=== PATIENT | male | born 1945 | race Caucasian/White ===

== ENCOUNTER 2017-03-04 05:52 | Inpatient (IN) | payer MEDICARE ==
[~2017-03-04] VITALS: Ht 185.4 cm; Wt 88.3 kg
--- NOTE | ~2017-03-04 | CATH ---
Cardiac Diagnostic + PCI Report Demographics Patient Name ARLENE TO Gender Male Date of 1945 Age 72 year(s) Patient Number [id number] Date of Study 03/04/2017 Visit Number [id number] Room Number G6330 [place] [id number] Ht 185.42 cm Wt 88 kg Referring [facility] Primary Physician Physician Maddy DAVENPORT Performing [facility] Secondary Physician Physician Maddy DAVENPORT Diagnostic [facility] Assisting Physician Physician Maddy DAVENPORT Interventional [facility] Physician Jig Bore Operator Physician Maddy DAVENPORT Findings and Conclusions Diagnostic Findings and Conclusion 2 vessel CAD: Mid LAD 100% total occlusion with collaterals from RCA and prox/mid RCA 70% tandem lesions with aneurysmal segment between the 2 lesions. Diagnostic Recommendations PCI LAD given ongoing chest pressure 3/10 and significant cardiac biomarker elevation this is likely the culprit lesion for ACS. Interventional Findings and Conclusion Status post PCI of LAD with SHARDA 3.25/33 Xience stent deployed at 12 sonny x 2 times for 20 seconds, distal to the stent severe spasm was noted in mid LAD that improved significantly with IC Nitro. Interventional Recommendations DAPT x1 year Medical management. Patient will be observed overnight. Continue current medications. Hydration and followup creatinine. Patient has been instructed to not lift anything more than 5 pounds for 1 week. I will plan on seeing the patient back in 2 week(s). Aggressive risk factor management. Aggressive medical therapy for coronary artery disease. ASA. Statin. Bulmaro Inhibitor. Beta Carmine. Smoking Cessation. Dual Anti-platelet therapy. Smoking Cessation teaching and counseling done . Cardiac diet . Optimization of medical therapy as an outpatient. Referral to Cardiac Rehabilitation now and at discharge . Will also add nitrates given severe spasm in mid to distal LAD that responds well to ntg. If patient has angina recommend PCI of RCA in future. Procedure Description The patient was brought to the diagnostic cardiac catheterization-EP laboratory in the fasting, non-sedated state. Informed consent was obtained in the written and verbal form after the risks and benefits were explained. The patient had no further questions and agreed to proceed. The planned puncture-incision site(s) were shaved and prepped with ChloraPrep and draped in the usual sterile manner. Conscious sedation, supplemental oxygen, and pain control medications were delivered by a registered nurse under physician guidance. Surface ECG rhythm, blood pressure measurement, and pulse oximetry were monitored throughout the procedure. Arterial access. The access site was infiltrated with lidocaine. The vessel was entered with the Seldinger technique. A sheath was advanced into the vessel and used for catheter placement. Selective left coronary angiography. A catheter was advanced into the left coronary vessel ostium under Fluoroscopic guidance. Contrast was injected by hand. Images were obtained in multiple projections. Selective right coronary angiography. A catheter was advanced into the right coronary vessel ostium under fluoroscopic guidance. Contrast was injected by hand. Images were obtained in multiple projections. Left heart catheterization. A catheter was advanced across the aortic valve to the left ventricle under fluoroscopic guidance. Resting hemodynamics were obtained. Angioplasty and Stent Placement: A guiding catheter was used to intubate the vessel. A 0.14 wire was then used to cross the lesion. A balloon catheter was placed across the lesion and inflated. The balloon catheter was then removed. A Drug Eluting Stent was placed and inflated. Post placement angiograms were performed. Arterial artery hemostasis was achieved. The patient was transferred to a regular nursing floor via cart accompanied by a nurse. The patient left the laboratory in stable condition. Diagnostic Cath Status: Urgent Interventional Cath Status: Urgent Procedure Procedure Type Diagnostic procedure:Angiography:, Coronary Angios /[facility] PCI procedure:Drug Eluting Coronary Stent:, LAD Indications: NSTEMI and Acute coronary syndrome. The procedure was explained in detail to the patient. Risks, complications and alternative treatments were reviewed. Written consent was obtained. Medications Reviewed with Patient prior to Procedure. Angiographic Findings Dominance: Right Cardiac Arteries and Lesion Findings LMCA: Lesion on LMCA: 10% stenosis . LAD: Diag normal Lesion on Mid LAD: Proximal subsection.100% stenosis reduced to 0%. Pre procedure DIANE 0 flow was noted. Post Procedure DIANE III flow was present. The guidewire cross was successful.The lesion was diagnosed as a high risk lesion.Culprit lesion. Devices used - Fielder FC 180 cm. Number of passes: 1. - Emerge Balloon 2.0 x 8. 2 inflation(s) to a max pressure of: 8 sonny. - Emerge Balloon 2.5 x 20. 4 inflation(s) to a max pressure of: 12 sonny. - Emerge Balloon 3.0 x 20. 1 inflation(s) to a max pressure of: 6 sonny. - Alpine Stent 3.25 x 33. 2 inflation(s) to a max pressure of: 12 sonny. Lesion on Prox LAD: Proximal subsection.70% stenosis . LCx: Normal (0% Stenosis).CIrc and OM normal RCA: RCA proximal and mid lesions aneurysmal. PL and PDA normal Lesion on Prox RCA: Proximal subsection.70% stenosis . Lesion on Mid RCA: Mid subsection.70% stenosis . Ramus: Lesion on Ramus: Mid subsection.10% stenosis . Coronary Tree Procedure Data Procedure Date Date: 03/04/2017Start: 10:27 AMEnd: 11:52 AM Entry Locations - Retrograde Percutaneous access was performed through the Right Radial artery (Primary location). A 6 Fr sheath was inserted. Hemostasis was successfully obtained using an R band. Closure Comments: R) band applied to site 19 ml of air in band.. Procedure Medications Order and Administration + + + + + !Time !Medication !Dosage !Route ! + + + + + !03/04/2017 10:24 !Fentanyl !25 mcg !I.V. ! !AM ! ! ! ! + + + + + !03/04/2017 10:25 !Versed !1 mg !I.V. ! !AM ! ! ! ! + + + + + !03/04/2017 10:41 !Angiomax (Bivalirudin) !67.5 mg !I.V. bolus ! !AM !(ACC_5) ! ! ! + + + + + !03/04/2017 10:42 !Angiomax (Bivalirudin) !1.75 mg/kg/hr!I.V. drip ! !AM !(ACC_5) ! ! ! + + + + + !03/04/2017 10:46 !Nitroglycerin !5 mcg/min !I.V. drip ! !AM ! ! ! ! + + + + + !03/04/2017 10:47 !Fentanyl !25 mcg !I.V. ! !AM ! ! ! ! + + + + + !03/04/2017 10:54 !Nitroglycerin ! !I.V. drip ! !AM ! ! ! ! + + + + + !03/04/2017 10:59 !Integrilin (ACC_7) !15.8 mg !I.V. bolus ! !AM ! ! ! ! + + + + + !03/04/2017 11:03 !Nitroglycerin !200 mcg !I.C. ! !AM ! ! ! ! + + + + + !03/04/2017 11:04 !0.9% NaCl !300 ml !I.V. bolus ! !AM ! ! ! ! + + + + + !03/04/2017 11:28 !Nitroglycerin !200 mcg !I.C. ! !AM ! ! ! ! + + + + + !03/04/2017 11:39 !Angiomax (Bivalirudin) ! !I.V. drip ! !AM !(ACC_5) ! ! ! + + + + + !03/04/2017 11:39 !Nitroglycerin !200 mcg !I.C. ! !AM ! ! ! ! + + + + + !03/04/2017 11:43 !Brilinta (Ticagrelor) !180 mg !P.O. ! !AM !(ACC_20) ! ! ! + + + + + Devices Used - A5 Fr. BS JR 4 Diag. Catheterwas used for:Right coronary angiography. - A5 Fr. BS JL 3.5 Diag. Catheterwas used for:Left coronary angiography. - A6 Fr. EBU 3.5 Guide Catheterwas used for:LAD Intervention. - A6 Fr. Guidlinerwas used for:LAD Intervention. - A5 Fr. BS JL 3.5 Diag. Catheterwas used for:Left coronary angiography. - A6 Fr. XB 3.5 Guide Catheterwas used for:LAD Intervention. Contrast Material - Isovue 108655 ml Fluoroscopy Time: Diagnostic: 32:54 minutes. Total: 32:54 minutes. Fluoroscopy Dose: Diagnostic: 4502 mGy. Total: 4502 mGy. Estimated Blood Loss: [address] [facility] PCI Information PCI Indication:PCI for high risk Non-STEMI or unstable angina. Medical History Performed Procedures and Imaging Results - No [facility] stress or imaging studies were performed. Allergies - Sulfa. Risk Factors The patient risk factors include:hypertension, chronic lung disease and Current/Recent(w/in 1 year) tobacco use. Admission Data Admission Date: 03/04/2017 Admission Time: 06:30 AM Admit Source: Transfer acute [facility] facility Insurance Payors: Medicare. Admission Medications + +------+------+ + + + + !Medication !Dosage!Times !Last !Last !Administered !Comments ! ! ! !Per !Delivery !Delivery ! ! ! ! ! !Day !Date !Time ! ! ! + +------+------+ + + + + !Aspirin ! ! !03/04/2017 !12:00 AM !Yes ! ! !(any) ! ! ! ! ! ! ! + +------+------+ + + + + !Beta ! ! !03/04/2017 !12:00 AM !Yes ! ! !Carmine ! ! ! ! ! ! ! !(any) ! ! ! ! ! ! ! + +------+------+ + + + + !Statin ! ! !03/04/2017 !12:00 AM !Yes ! ! !(any) ! ! ! ! ! ! ! + +------+------+ + + + + Clinical Evaluation Leading to Procedure - The patient's CAD presentation was assessed as: Non-STEMI. - The patient's anginal syndrome during the past two weeks was assessed as: Class IV according to the [place] Cardiovascular [employer] Classification System (CCS). Anti-anginal medications were prescribed during the past two weeks. The medication is: Beta Blockers. - The patient has been in a state of heart failure within the past two weeks. - The patient's heart failure status was assessed as NYHA Class II. Snapshots Hemodynamics Condition: Rest O2 Consumption: Estimated: 239.29Heart Rate: 62 bpm Pressures (mmHg) +-----+ + !Site !Pressure ! +-----+ + !LV !121/-1 ,10 ! +-----+ + !LV !120/-5 ,7 ! +-----+ + !AO !111/65 (85) ! +-----+ + !LV !123/-3 ,8 ! +-----+ + !AO !107/70 (86) ! +-----+ + Valve Gradients and Areas + +---------+---------+---------+ +---------+ + !Valve !Peak !Mean !Area !Index !Flow !Source ! + +---------+---------+---------+ +---------+ + !Aortic !0 !0 ! ! ! ! ! + +---------+---------+---------+ +---------+ + !Aortic !0 !0 ! ! ! ! ! + +---------+---------+---------+ +---------+ + Shunts Oxygen Values O2 Capacity 212.16 O2 Consumption 239.29 Signatures dtt: MADDY CRUZ dtd: 03/04/17 [facility]7 Physician Self Edit
--- NOTE | ~2017-03-04 | CON ---
PATIENT'S NAME: ARLENE [facility] AGE: 72 Y [address] ROOM: [place] [address] LOCATION: GPCU ADMIT DATE: 03/04/2017 Consultation DISCHARGE DATE: FAMILY PHYSICIAN: PHYSICIAN, UNKNOWN ATTENDING PHYSICIAN: SCOTT MUSTAFA DATE OF CONSULTATION: 03/04/2017 REFERRING PHYSICIAN: FRANCES DEMARCO MD REQUESTING PROVIDER: Scott Mustafa MD. REASON FOR CONSULTATION: Non-STEMI. CHIEF COMPLAINT: Chest pain. HISTORY OF PRESENTING ILLNESS: The patient is a very pleasant, 72-year-old male who has history of extensive tobacco abuse as well as hypertension. He is actually from [place]. He went to the ER via [place] ambulance due to come. Severe chest pain yesterday that is being getting progressed. He was actually mowing the lawn and working in his lawn. Yesterday, he started having severe chest pain. He needed to rest and got a little bit better, but progressively over-time the pain was getting much worse and it was about 10/10 on pain intensity and finally went to the ER. Once he was in the ER, he got his aspirin and nitroglycerin, and the chest pain decreased somewhat to 5 on pain scale and his enzymes in the local ER at [facility] were elevated. Troponin was 0.49. Initial one was 0.04 and finally he was sent here for further work up. He has continued to have chest pain pretty much throughout the night at about 3/10. He reports it is pressure in nature, it radiates to the back. It does not cause any nausea, vomiting, diaphoresis. No other acute complaints, as such apart from the chest discomfort that has been ongoing. His EKG shows mild ST depression with T-wave inversion in leads aVL. The patient appears to be in mild distress. The patient does not have any fever, chills, nausea, vomiting, rashes, stroke- like symptoms at this time. PAST MEDICAL HISTORY: 1. Hypertension. PATIENT'S NAME: ARLENE ZULEIKA [facility] AGE: 72 Y [address] ROOM: [place] [address] LOCATION: GPCU ADMIT DATE: 03/04/2017 Consultation DISCHARGE DATE: FAMILY PHYSICIAN: PHYSICIAN, UNKNOWN ATTENDING PHYSICIAN: SCOTT MUSTAFA PAST SURGICAL HISTORY: Prostate cancer. SOCIAL HISTORY: The patient smokes 2 packs per day. He has been smoking, since he was 42 years of age. No illicit drug abuse or alcohol abuse. He is and lives with his . FH: No premature FH Of CAD. REVIEW OF SYSTEMS: All review of systems discussed with the patient. Pertinent positives and negatives mentioned in the history of presenting illness. LABORATORY DATA: His sodium 141, potassium 4.3, chloride 109, CO2 22, glucose 123, BUN 9, and creatinine 0.9. Albumin 3.5, alkaline phosphatase 86, AST 49, ALT 24. His triglycerides 97, cholesterol is 147, VLDL is 19, LDL is 88. CPK is elevated at 477. CK-MB is elevated at 64.7 and troponin is 2.8. CBC: WBC 16.3, H and H 15.6 and 44.9, and platelets 374. ALLERGIES: SULFA. MEDICATIONS: Losartan and hydrochlorothiazide, dose is not known. PHYSICAL EXAMINATION: VITAL SIGNS: Blood pressure is 136/76, temperature is 98.5, pulse is 65. O2 sats are 93% on 2 L. His weight is 88 kg. HEENT: Head is atraumatic and normocephalic. Mucous membranes moist. Eyes, no xanthelasmas. Sclerae white. HEART: S1 and S2 regular rate and rhythm. No murmurs, gallops, or rubs. LUNGS: Clear to auscultation bilaterally. ABDOMEN: Soft. Bowel sounds positive. EXTREMITIES: No lower extremity edema. MUSCULOSKELETAL: Good range of motion. NEUROLOGIC: Grossly intact. Able to move all extremities against gravity. ECHOCARDIOGRAM: Pending. IMPRESSION AND PLAN: 1. Acute coronary syndrome, significant cardiac biomarker elevation with ongoing chest pain. The patient will need to be taken to the cardiac senior cytogenetics laboratory director. Given ACS with PATIENT'S NAME: ZULEIKA DURANT [facility] AGE: 72 Y [address] ROOM: G63[address] [place], [place] [address] [facility] ADMIT DATE: 03/04/2017 Consultation DISCHARGE DATE: FAMILY PHYSICIAN: PHYSICIAN, UNKNOWN ATTENDING PHYSICIAN: SCOTT MUSTAFA ongoing ischemia. The patient is agreeable this plan. Risks and benefits explained to the patient. Risks of heart attack, , stroke, LA emergency bypass, contrast induced nephropathy, 1 in 1000 cases risk of bleeding, bruising, infection, 1 in 100 cases patient understand and is agreeable to proceed with plan. 2. Tobacco abuse. Counseled against smoking. The patient understands and is agreeable to try. 3. Hypertension. Well controlled on current medications. Thank you very much for allowing us to participate in the care of Mr. Durant. JUANA CRUZ MD AT/modl /[id number] d: 03/04/17 0955 t: 03/06/17 1350, CONSULTATION REPORT
--- NOTE | ~2017-03-04 | ECHO ---
Transthoracic Echocardiography Report (TTE) Demographics Patient Name ZULEIKA JACOBS Date of Study 03/04/2017 Patient Number [id number] Visit Number [id number] Date of 1945 Room Number G6330 Gender Male Number Age 72 year(s) Referring Pbx Operator Anika RVT, RDCS Physician Bertha Physician Interpreting Jai Haines Pre Owned Sales Consultant Physician Yasmeen Castañeda MD Supervising Ordering Rossy Singh MD, MD/MLP Physician Nurse Stress Market Research Associate Conclusions Contractility Score Summary Normal Left Ventricular contractility was noted. Summary Mildly reduced LV systolic function. The estimated left ventricular ejection fraction is 50%. The mid to distal anteroseptum appears severely hypokinetic. Mild to moderate concentric left ventricular hypertrophy. Diastolic assessment reveals Grade I diastolic dysfunction. Mild MR, Mild AI. Procedure Type of Study TTE procedure:2D Echocardiogram, M-Mode, Doppler , Color Doppler. Procedure Date Date: 03/04/2017 Start: 08:11 AM Study Location: Inpatient Portable Technical Quality: Adequate visualization Indications:NSTEMI. Appropriate Use Criteria: 9 Patient Status: STAT HR: 62 bpm BP: 123/79 mmHg Allergies - Sulfa. M-Mode/2D Measurements LV Diastolic Dimension: 4.7 cm LV Systolic Dimension: 2.89 cm LV Septum Diastolic: 1.66 cm LV PW Diastolic: 1.28 cm AO Root Dimension: 3.6 cm Cardiac Output: 7.63 l/min AV Cusp Separation: 1.9 cm RV Diastolic Dimension: 2.26 cm LA volume: 27 ml LVOT: 2.4 cm RV Base: 2.63 cm LVOT VTI: 27.2 cm RV Mid: 2.06 cm LV Stroke volume: 122.99 ml TAPSE: 3.36 cm TDI-S': 15.9 cm/s Doppler Measurements AV Peak Velocity: 1.19 m/s MV Peak E-Wave: 1.26 m/s AV Peak Gradient: 5.66 mmHg MV Peak A-Wave: 0.66 m/s AV Mean Gradient: 4 mmHg MV E/A Ratio: 1.92 LVOT Peak Velocity: 1.05 m/s MV P1/2t: 76 msec AV P1/2t: 1275 msec PV Peak Velocity: 0.77 m/s E' Septal Velocity: 0.08 m/s PV Peak Gradient: 2.37 mmHg E' Lateral Velocity: 0.07 m/s A' Septal Velocity: 0.14 m/s A' Lateral Velocity: 0.14 m/s Findings Left Ventricle Mild to moderate concentric left ventricular hypertrophy. Diastolic assessment reveals Grade I diastolic dysfunction. Right Ventricle Normal right ventricle structure and function. Left Atrium Normal left atrial size. Right Atrium Normal right atrial size. IVC imaging is consistent with normal RA pressures. Mitral Valve Mild mitral regurgitation by color Doppler. Aortic Valve Normal aortic valve structure and function. Mild AI. Tricuspid Valve Trivial tricuspid regurgitation by color Doppler. Pulmonic Valve Normal pulmonic valve structure and function. Pericardial Effusion Trivial pericardial effusion. Pleural Effusion No evidence of pleural effusion. Contractility Score LV regional wall motion:(0-Non visualized 1-Normal 2-Hypokinesis 3-Akinesis 4-Dyskinesis 5-Aneurysm) Signature dtt: JUANA CRUZ dtd: 03/04/17 0811 Physician Self Edit
--- NOTE | ~2017-03-04 | HP ---
PATIENT'S NAME: ZULEIKA JACOBS [facility] AGE: 72 Y [address] ROOM: [place] [address] LOCATION: GPCU ADMIT DATE: 03/04/2017 History & Physical DISCHARGE DATE: FAMILY PHYSICIAN: PHYSICIAN, UNKNOWN ATTENDING PHYSICIAN: MYRIAM MUSTAFA DATE OF SERVICE: CHIEF COMPLAINT: Chest pain. HISTORY OF PRESENT ILLNESS: This is a 72-year-old, male who says that last night, he felt a substernal chest pain, about 10/10 in intensity and he described as an elephant sitting on his chest and is constant. He also vomited once. He denies any associated shortness of breath. Because the pain persisted, the patient called the ambulance. The patient was brought to [facility]. Over there, 2 EKGs were performed. First one on March 04, 2017, at 12:47 a.m., showed questionable ST elevation in the anterior septal leads. Normal sinus. Heart rate 72 beats per minute. The patient had another repeat EKG on March 04, 2017, at 4:43 a.m., showed similar finding. Heart rate was 61 beats per minute. Troponin initially was negative and then there was elevation of troponin. The patient was started on IV heparin bolus followed by drip and also got a full-dose aspirin and 1 dose of p.o. Lopressor 25 mg as well as Lipitor 80 mg and the patient was put on IV nitroglycerin drip. The patient's chest pain went down from 8/10 to 3/10. The patient was later transferred here for further care. REVIEW OF SYSTEMS: As mentioned in the history of present illness. All other systems were reviewed and they were negative except those mentioned in history of present illness. PAST MEDICAL HISTORY: 1. History of prostate cancer, status post surgical resection in the past. 2. Hypertension. 3. COPD, not on home oxygen. ALLERGIES: NO KNOWN DRUG ALLERGIES. HOME MEDICATIONS: Currently is being reconciled. SOCIAL HISTORY: PATIENT'S NAME: ZULEIKA JACOBS [facility] AGE: 72 Y [address] ROOM: [place] [address] LOCATION: GPCU ADMIT DATE: 03/04/2017 History & Physical DISCHARGE DATE: FAMILY PHYSICIAN: PHYSICIAN, UNKNOWN ATTENDING PHYSICIAN: MYRIAM MUSTAFA The patient smokes 1 pack per day of cigarettes for the last 40 years and he still smokes. The patient denies any alcohol or any illegal drug use. PAST SURGICAL HISTORY: Status post prostatectomy. FAMILY HISTORY: Father from old age and the mother from old age also. PHYSICAL EXAMINATION: VITAL SIGNS: At the time of dictation, temperature 98.5, heart rate 65, respirations 16, blood pressure 136/76, saturation 96% on 2 L nasal cannula. GENERAL APPEARANCE: Alert and oriented x3, in no acute distress. HEENT: Pupils are equally round and reactive to light. Extraocular muscles are intact. Anicteric sclerae. Nasal turbinates are normal bilaterally. Moist oral mucosa. NECK: No JVD. CARDIOVASCULAR: Regular rate and rhythm. I do not appreciate any murmurs, rubs, or gallops at the moment. Normal S1, S2. RESPIRATORY: Clear to auscultation. No rales, no rhonchi, no crackles, no wheezing. ABDOMEN: Soft, nontender, nondistended, normal bowel sounds, no hepatosplenomegaly. Bowel sounds are present. No mass. EXTREMITIES: No edema in upper or lower extremities. SKIN: No ulcer, no rash, no cyanosis. NEUROLOGIC: Grossly nonfocal. MUSCULOSKELETAL: No joint pain and no muscle pain. LABORATORY DATA: Currently, our labs are pending. Laboratory from the outside facility: White blood cells 14.8, hemoglobin 15.9, hematocrit 44.9, platelets 357. Sodium 137, potassium 3.3, chloride 102, carbon dioxide 26, anion gap 12, BUN 12, creatinine 1.07. GFR more than 60. Glucose 114, calcium 8.3, total bilirubin 0.3, AST 14, ALT 19, alkaline phosphatase 87, CK-MB 1.0. Troponin 0.044 followed by 0.579. Albumin 3.4, globulin 3.4. IMAGING: Chest x-ray from the outside facility showed no evidence of cardiopulmonary process. Findings suggestive of chronic airway disease. EKG: Already mentioned in the history of present illness. PATIENT'S NAME: ZULEIKA JACOBS [facility] AGE: 72 Y [address] ROOM: [place] [address] [facility] AD[facility] DATE: 03/04/2017 History & Physical DISCHARGE DATE: FAMILY PHYSICIAN: PHYSICIAN, UNKNOWN ATTENDING PHYSICIAN: MYRIAM MUSTAFA Currently, I am repeating another EKG and is currently pending. ASSESSMENT AND PLAN: 1. Regarding his uys-VA-phmwtxk elevation myocardial infarction: EKG currently is pending. I will continue with the ACS protocol, continue IV heparin drip, IV nitroglycerin drip, titrate for chest pain relief. Aspirin, Lipitor, Lopressor, IV nitroglycerin drip, and IV heparin drip. I will be getting a transthoracic echo now and cycle cardiac enzymes every 6 hours n.p.o. Check hemoglobin A1c and lipid panel. I already spoke to the on-call internal combustion engine inspector, Dr. Ferguson, who will be seeing the patient shortly. N.p.o. for now. Further plan depends on clinical course. 2. Regarding his history of chronic obstructive pulmonary disease: Currently, not in flare. Continue oxygen nasal cannula. I will order some nebulization p.r.n. For him, I will use Xopenex plus Atrovent p.r.n. and also with Xopenex p.r.n. 3. Regarding his history of hypertension: Currently, he is on Lopressor per ACS protocol. Home medication will need to be addressed once the list is ready. 4. Regarding his deep vein thrombosis prophylaxis, the patient is already on heparin drip. 5. Code status: He is a FULL CODE. TIME SPENT IN CARE ON THE DAY OF ADMISSION: The total time spent was 50 minutes. More than half of the total time was spent in counseling, including addressing all the patient questions and concerns and also going over the plan of care with the patient. I also went over the plan of care with the nurse. The remaining of the total time spent was in chart review, interviewing, and also physical examination. Further plan depends on clinical course. I have answered all of the patient's questions and concerns to his satisfaction. Further plan will depend on clinical course. MYRIAM MUSTAFA MD CC/modl /[id number] D: T: [id number] HISTORY & PHYSICAL
--- NOTE | ~2017-03-04 | DS ---
PATIENT'S NAME: ZULEIKA JACOBS [facility] AGE: 72 Y [address] ROOM: [id number] [place], [place] [address] LOCATION: GPCU ADMIT DATE: 03/04/2017 Discharge Summary DISCHARGE DATE: 03/05/2017 FAMILY PHYSICIAN: Salina Christensen ATTENDING PHYSICIAN: Scott Blair FINAL DIAGNOSES: 1. Acute coronary syndrome, status post angioplasty, percutaneous coronary intervention of the left anterior descending artery with drug-eluting stent. 2. Essential hypertension. 3. Chronic obstructive pulmonary disease. 4. Long-term nicotine usage. REASON FOR HOSPITALIZATION: The patient presented to the ER via [place] [facility] after he began having chest pain that began when he was mowing and working in his yard. In the emergency room, he was found to have elevated troponins without any EKG changes. He was diagnosed with a non-STEMI and admitted to the floor. LABORATORY DATA: On admission, sodium 141, discharge 142; BUN on admission was 9, discharge 9; creatinine on admission was 0.9, discharge 0.8. Liver enzymes: Alkaline phosphatase on admission was 86, discharge 70; AST on admission was 49, normal 32 to 16; ALT on admission was 24, discharge 50. Lipid panel: Cholesterol 147, triglycerides 97, HDL 40, LDL 88. CK enzyme on admission was 477, got as high as 1897, was 988 prior to discharge. Troponin on admission was 2.8, got as high as 73.7, at discharge was 31.2. Hemoglobin A1c was 5.5 on admission. White blood cell count 16.3, hemoglobin 15.6, hematocrit 44.9, and platelet count 374. PTT was 35, pro-time 10.2, and INR 0.97. X-RAY DATA: Chest x-ray did not show any acute changes. Echocardiogram showed that his ejection fraction was 50%, distal anterior septum was hypokinetic, and he had concentric moderate left ventricular hypertrophy. HOSPITAL COURSE: The patient was admitted to the hospital, placed on heparin and nitroglycerin, with a diagnosis of a non-STEMI. Dr. Castañeda was consulted from a Cardiology standpoint, and an echocardiogram was obtained. It was felt after Dr. Castañeda sees him, that he would need to proceed to the laborer mine and was taken to the laborer [facility]. At that time, he did have a PTCA and stent of the LAD. He also was found to have significant disease in the right coronary artery, that would need to be addressed in 6-8 weeks. His medications were adjusted and overall was doing well. The patient was monitored overnight, felt to be stable for discharge, and discharged to home. PATIENT'S NAME: ZULEIKA JACOBS [facility] AGE: 72 Y [address] ROOM: [place] [address] LOCATION: GPCU ADMIT DATE: 03/04/2017 Discharge Summary DISCHARGE DATE: 03/05/2017 FAMILY PHYSICIAN: Salina Christensen ATTENDING PHYSICIAN: Scott Blair DISCHARGE MEDICATIONS: 1. Aspirin 81 mg daily. 2. Lipitor 40 mg daily. 3. Imdur 60 mg daily. 4. Lopressor 25 mg twice daily. 5. Protonix 40 mg daily. 6. Brilinta 90 mg twice daily. 7. Nitroglycerin 0.4 mg p.r.n. chest pain. 8. Proventil HFA 1 puff every 6 hours as needed. 9. Avapro 75 mg daily. 10. Symbicort 80/4.5 two puffs twice daily. 11. Glucosamine 500 mg daily. 12. 1 daily. DISCHARGE INSTRUCTIONS: Prior to discharge, I spent 15 minutes of counseling with the patient on smoking cessation. We talked about the risks of continuing to smoke, the benefits of stopping, and strategies to be successful. He is to follow up with Dr. Castañeda in 2-3 weeks at which time, his next procedure will be scheduled. NAUN ESTRADA MD LAW/modl /[id number] CC: Maddy Arana MD d: 03/06/17 1758 t: 03/15/17 1833, DISCHARGE SUMMARY
[2017-03-04] MEDS ORDERED: AVAPRO150 MG PO (08:04)
[2017-03-04] MEDS ORDERED: HYDRODIURIL25 MG PO (08:04)
[2017-03-04] MEDS ORDERED: PROVENTIL OR V6.7 GM INH (08:05)
[2017-03-04] MEDS ORDERED: SYMBICORT 80-10.2 GM INH (08:06)
[2017-03-04] MEDS ORDERED: GLUCOSAMINE HC500 MG PO (08:06)
[2017-03-04] MEDS ORDERED: PROTONIX40 MG PO (08:06)
[2017-03-04] MEDS ORDERED: ACAI500 MG PO (08:07)
[2017-03-04 08:22] LABS: BASOPHIL % 0.2 %; HEMATOCRIT 44.9 % (37.0-53.0); HEMOGLOBIN 15.6 g/dL (11.0-16.0); IMMATURE GRANULOCYTE # 0.1 K/uL (0.0-0.3); IMMATURE GRANULOCYTE % 0.4 %; LYMPHOCYTE # 1.3 K/uL (0.8-4.0); LYMPHOCYTE % 8.2 %; MCH 30.5 pg (27.0-34.0); MCHC 34.7 gm/dL (32.0-36.5); MCV 87.7 fl (83.0-98.0); MONOCYTE # 0.2 K/uL (0.0-1.0); MONOCYTE % 1.4 %; MPV 9.4 fl (9.4-12.4); NEUTROPHIL # (ANC) 14.6 K/uL (1.4-9.0); NEUTROPHIL % 89.8 %; NRBC % 0 /100WBC (0-0.00); PLATELET COUNT 374 K/uL (150-450); RBC 5.12 M/uL (3.50-5.50); RDW-CV 12.2 % (11.9-14.6)
[2017-03-04 08:26] LABS: WBC 16.3 K/uL (4.0-11.0)
[2017-03-04 08:28] LABS: INR - (THERAPEUTIC) 0.97 (0.92-1.07); PROTIME 10.2 SECONDS (9.8-11.4); PTT 35 SECONDS (25-32)
[2017-03-04 08:42] LABS: ALBUMIN 3.5 gm/dL (3.5-5.0); ALK PHOS 86 IU/L (33-138); ALT 24 IU/L (12-78); ANION GAP 14.3 (10.0-19.0); AST 49 IU/L (10-40); BLOOD UREA NITROGEN 9 mg/dL (6-24); CALCIUM 8.2 mg/dL (8.5-10.5); CHLORIDE 109 mMol/L (96-110); CO2 22 mMol/L (22-32); CPK 477 IU/L (35-332); CREATININE 0.9 mg/dL (0.6-1.3); ESTIMATED GFR (MDRD EQUATION) > 60; MAGNESIUM 2.4 mg/dL (1.8-2.6); POTASSIUM 4.3 mMol/L (3.7-5.1); SODIUM 141 mMol/L (135-145); TOTAL BILIRUBIN 0.6 mg/dL (0.0-1.5); TOTAL PROTEIN 6.8 g/dL (6.0-8.4)
--- NOTE | 2017-03-04 17:27 | NUR ---
Significant Event: A/O x3, cooperative with cares. VSS, SBPs 130-150s, HRs 60s, oxygen at 1 liter. No c/o pain. Heart cath today, stent x1 to LAD. R) radial site soft non-tender; R) band remains in place with 9 ml of air remaining. Echo today, EF 50%. Up with SBA to void at bedside Follow up: ? d/c in AM
--- NOTE | 2017-03-05 05:01 | NUR ---
Significant Event: VSS.RA. R RADIAL CDI, NO SWELLING, NO ECCHYMOSIS. PT DENIES CHEST PAIN/DIZZINESS. GOOD UOP. PT SLEPT MAJORITY OF SHIFT. Follow up: POSSIBLE DISMISSAL 03/05
[2017-03-05 05:03] LABS: BASOPHIL % 0.2 %; EOSINOPHIL # 0.1 K/uL (0.0-0.5); EOSINOPHIL % 0.4 %; HEMATOCRIT 40.5 % (37.0-53.0); IMMATURE GRANULOCYTE # 0.1 K/uL (0.0-0.3); IMMATURE GRANULOCYTE % 0.4 %; LYMPHOCYTE # 2.7 K/uL (0.8-4.0); LYMPHOCYTE % 17.3 %; MCH 30.5 pg (27.0-34.0); MCHC 34.6 gm/dL (32.0-36.5); MCV 88.2 fl (83.0-98.0); MONOCYTE # 1.3 K/uL (0.0-1.0); MONOCYTE % 7.9 %; MPV 9.6 fl (9.4-12.4); NEUTROPHIL # (ANC) 11.6 K/uL (1.4-9.0); NEUTROPHIL % 73.8 %; NRBC % 0 /100WBC (0-0.00); RBC 4.59 M/uL (3.50-5.50); RDW-CV 12.7 % (11.9-14.6); WBC 15.8 K/uL (4.0-11.0)
[2017-03-05 05:10] LABS: PLATELET COUNT 298 K/uL (150-450)
[2017-03-05 05:24] LABS: ALK PHOS 70 IU/L (33-138); ALT 50 IU/L (12-78); ANION GAP 12.7 (10.0-19.0); AST 216 IU/L (10-40); BLOOD UREA NITROGEN 9 mg/dL (6-24); CALCIUM 7.8 mg/dL (8.5-10.5); CHLORIDE 111 mMol/L (96-110); CO2 22 mMol/L (22-32); CREATININE 0.8 mg/dL (0.6-1.3); ESTIMATED GFR (MDRD EQUATION) > 60; POTASSIUM 3.7 mMol/L (3.7-5.1); SODIUM 142 mMol/L (135-145)
[2017-03-05 05:25] LABS: TOTAL BILIRUBIN 0.9 mg/dL (0.0-1.5)
[2017-03-05] MEDS ORDERED: ASPIRIN EC81 MG PO (12:06)
[2017-03-05] MEDS ORDERED: LIPITOR40 MG PO (12:07)
[2017-03-05] MEDS ORDERED: IMDUR60 MG PO (12:09)
[2017-03-05] MEDS ORDERED: LOPRESSOR25 MG PO (12:10)
[2017-03-05] MEDS ORDERED: BRILINTA90 MG PO (12:11)
[2017-03-05] MEDS ORDERED: NITROSTAT0.4 MG SL (12:13)
--- NOTE | 2017-03-05 13:24 | NUR ---
A&0.VSS. LS CLEAR/DIM. SBA. NO C/O PAIN. AMB IN HALLS. R WRIST CATH SITE CDI. CSM WNL. NO DIZZINESS. BM 03/04. VOID PER BR. NO C/O CX PAIN. NO C/O SOB. AT BEDSIDE IN A HURRY TO LEAVE. DISMISSAL INSTUCTIONS REVIEWED. IV DC'D. TAKEN TO LOBBY VIA WC AND TA. TO PRIVATE VEHICLE HOME.
== END 2017-03-05 13:28 | disposition disaster alternative care site (69) | DRG 249 ==
LOC: GPCU 05:52
PROVIDERS: Internal Medicine; Internal Medicine Interventional Cardiology; ADMIT Internal Medicine
DX: I21.4 Non-ST elevation (NSTEMI) myocardial infarction (principal); J44.9 Chronic obstructive pulmonary disease, unspecified; I10 Essential (primary) hypertension; Z85.46 Personal history of malignant neoplasm of prostate; F17.210 Nicotine dependence, cigarettes, uncomplicated; Z88.2 Allergy status to sulfonamides; I24.9 Acute ischemic heart disease, unspecified; I25.10 Atherosclerotic heart disease of native coronary artery without angina pectoris; Z79.82 Long term (current) use of aspirin
CPT/HCPCS: C1725; C1769; C1874; C1887; C9600; J0583; J1327; J1644; J2250; J3010; J7030; J7060; J7612

== ENCOUNTER → 2017-03-28 | Outpatient (CLI) | payer MEDICARE, OTHER ==
[~2017-03-28] MED LIST: ACAI500 MG PO; ASPIRIN EC81 MG PO; AVAPRO150 MG PO; BRILINTA90 MG PO; GLUCOSAMINE HC500 MG PO; HYDRODIURIL25 MG PO; IMDUR60 MG PO; LIPITOR40 MG PO; LOPRESSOR25 MG PO; NITROSTAT0.4 MG SL; PROTONIX40 MG PO; PROVENTIL OR V6.7 GM INH; SYMBICORT 80-10.2 GM INH
[2017-03-28 09:56] LABS: ANION GAP 13.4 (10.0-19.0); BLOOD UREA NITROGEN 12 mg/dL (6-24); CALCIUM 8.7 mg/dL (8.5-10.5); CHLORIDE 108 mMol/L (96-110); CO2 22 mMol/L (22-32); CREATININE 0.9 mg/dL (0.6-1.3); ESTIMATED GFR (MDRD EQUATION) > 60; POTASSIUM 3.4 mMol/L (3.7-5.1); SODIUM 140 mMol/L (135-145)
== END | disposition disaster alternative care site (69) ==
LOC: LNHI 09:37
PROVIDERS: Internal Medicine Interventional Cardiology
DX: I25.10 Atherosclerotic heart disease of native coronary artery without angina pectoris (principal); I10 Essential (primary) hypertension